=== PATIENT | female | born 1985 | race Caucasian/White ===

== ENCOUNTER 2017-03-21 04:09 | Inpatient (IN) | payer BC ==
[~2017-03-21] VITALS: Ht 172.7 cm; Wt 84.4 kg
--- NOTE | ~2017-03-21 | OR ---
PATIENT'S NAME: TAYLA MORALESAH Nely [facility] AGE: 31 Y [address] ROOM: [place] [id number] LOCATION: GOBS ADMIT DATE: 03/24/2017 OR/Procedure Report DISCHARGE DATE: FAMILY PHYSICIAN: PHYSICIAN, NO ATTENDING PHYSICIAN: Rebekah Mckeon SURGEON: Rebekah Mckeon MD CARDIAC CATH TECHNICIAN: DATE OF PROCEDURE: 03/24/2017 PREOPERATIVE DIAGNOSES: 1. Intrauterine at 40 weeks and 3 days. 2. Active labor. POSTOPERATIVE DIAGNOSES: 1. Intrauterine at 40 weeks and 3 days. 2. Active labor. PROCEDURE: Spontaneous vaginal delivery. ESTIMATED BLOOD LOSS: 300 mL. ANESTHESIA: Epidural. FINDINGS: Female , score 8 and 9, weight 8 pounds 15 ounces. Intact placenta, 3-vessel cord. Second-degree perineal laceration. INDICATIONS: This patient is a 31-year-old, -0-0-1 female, who presented to Labor and Delivery at 40 weeks and 3 days gestation, in active labor. She had an uncomplicated . She had spontaneous rupture of membranes and progressed along a normal labor curve to complete. She underwent expulsive efforts for just a few contractions. DESCRIPTION OF PROCEDURE: With expulsive effort, the head delivered over an intact perineum. The rest of fetus was delivered. The nose and mouth were bulb suctioned. The cord was clamped and cut. The infant was handed to awaiting team. Cord blood was drawn. The placenta delivered with manual traction. Cervix, vagina, and perineum were examined, and a second-degree perineal laceration was noted and repaired in standard fashion with chromic suture. COMPLICATIONS: None. CONDITION: Mom stable in room. Infant to nursery. [facility] AGE: 31 Y [address] ROOM: [place] [address] LOCATION: BS ADMIT DATE: 03/24/2017 OR/Procedure Report DISCHARGE DATE: FAMILY PHYSICIAN: PHYSICIAN, NO ATTENDING PHYSICIAN: Rebekah Mckeon MD ANI DUDLEY/modl /[id number] d: 03/24/17904 t: 04/06/17 0859, OPERATIVE SUMMARY
[~2017-03-21 04:09] MED LIST: APNO TOP; DERMOPLAST SPRA56 GM TOP; MOTRIN800 MG PO; PERCOCET 5-3251 EACH PO; PRENATAL 1+1)(P1 TAB PO; TUCKS1 EACH TOP
[2017-03-24 05:21] LABS: BASOPHIL % 0.2 %; EOSINOPHIL % 0.4 %; HEMATOCRIT 39.3 % (33.0-46.0); HEMOGLOBIN 13.7 g/dL (11.0-15.0); IMMATURE GRANULOCYTE # 0.1 K/uL (0.0-0.3); IMMATURE GRANULOCYTE % 0.9 %; LYMPHOCYTE # 1.8 K/uL (0.8-4.0); LYMPHOCYTE % 19.2 %; MCH 31.7 pg (27.0-34.0); MCHC 34.9 gm/dL (32.0-36.5); MONOCYTE # 0.6 K/uL (0.0-1.0); MPV 11.9 fl (9.4-12.4); NEUTROPHIL # (ANC) 6.7 K/uL (1.8-7.8); NEUTROPHIL % 73.3 %; NRBC % 0 /100WBC (0-0.00); PLATELET COUNT 152 K/uL (150-450); WBC 9.1 K/uL (4.0-11.0)
[2017-03-24 05:22] LABS: RBC 4.32 M/uL (3.50-5.50)
[2017-03-25 05:41] LABS: BASOPHIL % 0.2 %; EOSINOPHIL # 0.1 K/uL (0.0-0.5); EOSINOPHIL % 0.7 %; HEMATOCRIT 32.3 % (33.0-46.0); HEMOGLOBIN 11.1 g/dL (11.0-15.0); IMMATURE GRANULOCYTE # 0.1 K/uL (0.0-0.3); IMMATURE GRANULOCYTE % 0.6 %; LYMPHOCYTE # 1.9 K/uL (0.8-4.0); LYMPHOCYTE % 17.2 %; MCH 31.9 pg (27.0-34.0); MCHC 34.4 gm/dL (32.0-36.5); MCV 92.8 fl (83.0-98.0); MONOCYTE # 0.6 K/uL (0.0-1.0); MPV 11.1 fl (9.4-12.4); NEUTROPHIL # (ANC) 8.5 K/uL (1.8-7.8); NEUTROPHIL % 76.3 %; NRBC % 0 /100WBC (0-0.00); PLATELET COUNT 134 K/uL (150-450); RBC 3.48 M/uL (3.50-5.50); RDW-CV 12.3 % (11.9-14.6); WBC 11.2 K/uL (4.0-11.0)
[2017-03-25] MEDS ORDERED: DERMOPLAST SPRA56 GM TOP (10:10)
[2017-03-25] MEDS ORDERED: PERCOCET 5-3251 EACH PO (10:11)
[2017-03-25] MEDS ORDERED: MOTRIN800 MG PO (10:11)
== END 2017-03-25 10:30 | disposition disaster alternative care site (69) | DRG 775 ==
LOC: EDSTATUS 04:09 → GOBM 12:04 → GOBS 03-24 04:35
PROVIDERS: Obstetrics & Gynecology; ADMIT Obstetrics & Gynecology
PROC: 0KQM0ZZ Repair Perineum Muscle, Open Approach (ICD-10-PCS; principal; 2017-03-24)
PROC: 10E0XZZ Delivery of Products of Conception, External Approach (ICD-10-PCS; principal; 2017-03-24)
DX: O70.1 Second degree perineal laceration during delivery (principal); Z37.0 Single live birth; Z3A.40 40 weeks gestation of pregnancy
CPT/HCPCS: J2001; J2590; J3010; J7120